=== PATIENT | male | born 1980 | race Two or more races ===

== ENCOUNTER 2023-07-18 00:04 | Inpatient (IN) | payer MEDICAID, OTHER ==
[~2023-07-18] VITALS: Ht 190.5 cm; Wt 109.1 kg
[2023-07-18 00:44] LABS: Basophils # (auto) 0.1 10 ^3/uL (0-0.2); Basophils % (auto) 0.8 % (0.0-2.0); Eosinophils # (auto) 0.1 10 ^3/uL (0-0.8); Hematocrit 30.2 % (41.0-53.0); Hemoglobin 9.8 g/dL (13.5-17.5); Lymphocytes # (auto) 1.4 10 ^3/uL (0.4-5.4); Lymphocytes % (auto) 22.7 % (10.0-50.0); Mean Corpuscular Hgb Conc. 32.6 g/dL (32.0-36.0); Mean Corpuscular Volume 82.7 fL (80.0-100.0); Monocytes # (auto) 0.3 10 ^3/uL (0-1.3); Monocytes % (auto) 5.4 % (0.0-12.0); Neutrophils # (auto) 4.2 10 ^3/uL (1.6-8.6); Neutrophils % (auto) 69.1 % (37.0-80.0); Red Blood Cells 3.65 10^6/uL (4.5-5.90); White Blood Cell 6.1 10^3/uL (4.4-10.8)
[2023-07-18 00:45] VITALS: PULSE 94; RESP 14; O2SAT 100
[2023-07-18 00:47] LABS: Alanine Aminotransferase 21 U/L (7-40); Alkaline Phosphatase 84 U/L (46-116); Aspartate Aminotransferase 19 U/L (13-40); BUN/Creatinine Ratio 7.3 (10.0-20.0); Blood Urea Nitrogen 54 mg/dL (9-23); Calcium 8.5 mg/dL (8.7-10.4); Chloride 112 mmol/L (98-107); Glucose 116 mg/dL (74-106); Magnesium 1.8 mg/dL (1.6-2.6); Potassium 4.3 mmol/L (3.5-5.1); Sodium 142 mmol/L (136-145)
[2023-07-18 00:48] LABS: Bilirubin, Total 0.2 mg/dL (0.2-1.0); Total Protein 7.2 g/dL (5.7-8.2)
[2023-07-18 02:40] LABS: Urine Bacteria NONE SEEN /hpf (None Seen); Urine Blood Negative /uL (Negative); Urine Clarity Clear (Clear); Urine Color Colorless (Yellow); Urine Protein, UAD 1+ (Negative); Urine Specific Gravity 1.007 (1.001-1.035); Urine Urobilinogen Normal (Negative); Urine WBC 1 /hpf (0 - 3); Urine pH 7.5 (5.0-8.0)
[2023-07-18] MEDS ORDERED: NITROGLYCERIN 0.4 MG SL TAB SL ONE (03:30)
[2023-07-18] MEDS ORDERED: FUROSEMIDE 40 MG/4 ML VIAL IV ONE (03:45)
[2023-07-18] MEDS ORDERED: NIFE90TA75 PO (04:47)
[2023-07-18] MEDS ORDERED: FURO40TA4 PO (04:47)
[2023-07-18] MEDS ORDERED: VALS40TA2 PO (04:47)
[2023-07-18] MEDS ORDERED: APIX5TAB PO (04:47)
[2023-07-18] MEDS ORDERED: SEVE800T10 PO (04:47)
[2023-07-18] MEDS ORDERED: HYDR25TA87 PO (04:47)
[2023-07-18] MEDS ORDERED: CAR125T PO (04:47)
[2023-07-18] MEDS ORDERED: ONDANSETRON HCL 4 MG/2 ML VIAL IV PRN (06:45)
[2023-07-18] MEDS ORDERED: TEMAZEPAM 15 MG CAP PO PRN (06:45)
[2023-07-18] MEDS ORDERED: ACETAMINOPHEN 325 MG TAB PO PRN (06:45)
[2023-07-18] MEDS ORDERED: NITROGLYCERIN 0.4 MG SL TAB SL PRN (06:45)
[2023-07-18] MEDS ORDERED: MORPHINE SULFATE INJ 2 MG/ml SYRG IV PRN (06:45)
[2023-07-18 08:00] VITALS: PULSE 82; RESP 17; O2SAT 100
[2023-07-18] MEDS: SEVELAMER 800 MG TAB PO SCH ×2 (09:08→14:30)
[2023-07-18] MEDS ORDERED: AZITHROMYCIN 500MG/ 250ML 250 ML IV SCH (10:00)
[2023-07-18] MEDS ORDERED: NIFEdipine ER 30 MG TAB PO SCH (10:00)
[2023-07-18] MEDS ORDERED: SODIUM CHL 0.9% 1000 ML BAG XX ONE (10:00)
[2023-07-18] MEDS ORDERED: APIXABAN 5 MG TAB PO SCH (10:00)
[2023-07-18] MEDS ORDERED: CARVEDILOL 12.5 MG TAB PO SCH (10:00)
[2023-07-18] MEDS ORDERED: PANTOPRAZOLE 40 MG TAB PO SCH (10:00)
[2023-07-18] MEDS ORDERED: FUROSEMIDE 40 MG TAB PO SCH (10:00)
[2023-07-18] MEDS ORDERED: LABETALOL HCL 5 MG/ML 4ML SYRINGE IV PRN (12:30)
[2023-07-18] MEDS ORDERED: hydrALAZINE HCL 25 MG TAB PO SCH (14:00)
[2023-07-18 16:00] VITALS: BP 142/88; PULSE 97; RESP 16; TEMP 98.3; O2SAT 95
[2023-07-18] MEDS ORDERED: EPOETIN ALFA-EPBX 10,000 UNIT/1ML VIAL SC ONE (21:00)
[2023-07-19] MEDS ORDERED: cefTRIAXone 1GM/50ML D5W 50 ML IV SCH (09:00)
[2023-07-19] MEDS ORDERED: AZITHROMYCIN 250 MG TAB PO SCH (10:00)
== END 2023-07-18 16:18 | disposition left against medical advice (07) | DRG 137 ==
LOC: ER 00:04 → TELE 06:40
PROVIDERS: ADMIT Nurse Practitioner; ATTEND Nurse Practitioner Acute Care
DX: J15.6 Pneumonia due to other Gram-negative bacteria (principal); I13.2 Hypertensive heart and chronic kidney disease with heart failure and with stage 5 chronic kidney disease, or end stage renal disease; D63.1 Anemia in chronic kidney disease; N18.6 End stage renal disease; Z79.01 Long term (current) use of anticoagulants; I50.20 Unspecified systolic (congestive) heart failure; E66.9 Obesity, unspecified; I16.9 Hypertensive crisis, unspecified; Z86.718 Personal history of other venous thrombosis and embolism; Z99.2 Dependence on renal dialysis; Z53.29 Procedure and treatment not carried out because of patient's decision for other reasons; Z91.158 Patient's noncompliance with renal dialysis for other reason; Z68.30 Body mass index [BMI] 30.0-30.9, adult
CPT/HCPCS: 36415; 71045; 71250; 74176; 80053; 81001; 83735; 83880; 84484; 85025; 93005; 96365; 96366; 96375; G0378